=== PATIENT | male | born 1945 | race Caucasian/White ===

== ENCOUNTER 2017-10-28 11:35 | Inpatient (IN) | payer OTHER, BC ==
[~2017-10-28] VITALS: Ht 175.3 cm; Wt 68.0 kg
[~2017-10-28 11:35] MED LIST: ACETAMINOPHEN-1 EAC1 PO; ANASPAZ0.125 MG SL; ASPIR 8181 M1 PO; ASPIRIN325 PO; BACTRIM DS TAB1 EACH PO; BENAZEPRIL HCL40 MG PO; CASODEX 50 MG T50 MG PO; CIPRO500 MG PO; CIPROFLOXACIN500 M1 PO; CLOPIDOGREL75 MG PO; DILAUDID 2 MG TA2 MG PO; DOXYCYCLINE 10100 M1 PO; FERREX 150 PLU1 EAC1 PO; GLUCOTROL5 MG PO; HYDROCODONE-AP1 EAC6 PO; IBUPROFEN 200200 M1 PO; JANUMET 50-5001 EACH PO; LASIX 20 MG TAB20 MG PO; LOPRESSOR50 PO; LORTAB 5 MG/5001 TA1 PO; LOTREL 10-40 M1 EACH PO; METFORMIN HCL500 MG PO; NITROGLYCERIN0.4 MG SUBLING; NORVASC10 MG PO; PERIDEX15 ML; PHENAZOPYRIDIN200 M2 PO; PHENERGAN 25 MG25 M1 PO; PLAVIX 75 MG TA75 M1 PO; SIMVASTATIN20 MG PO; TOPROL XL50 MG PO; TYLENOL EXTRA500 MG PO; ZANTAC 150MG T150 M1 PO
[2017-10-28 11:36] VITALS: BP 189/101
[2017-10-28 12:00] LABS: HEMATOCRIT 27.9 % (42.0-52.0); HEMOGLOBIN 9.3 gm/dL (14.0-18.0); MCHC 33.4 g/dL (28.0-37.0); MCV 86.7 fL (80.0-100.0); MPV 7.5 fl. (7.2-11.1); NUCLEATED RBCS 0 /100WBC; PLATELET COUNT* 401 thou/uL (150-400); RBC 3.22 mil/uL (4.50-6.00); RDW-CV 18.2 % (10.5-14.5)
[2017-10-28 12:17] LABS: ANION GAP 7 mmol/L (7-16); BUN 14 mg/dL (7-18); CALCIUM 8.6 mg/dL (8.5-10.1); CHLORIDE 101 mmol/L (98-107); CO2 27 mmol/L (21-32); CREATININE 1.2 mg/dL (0.6-1.3); GLUCOSE 132 mg/dL (70-99); POTASSIUM 3.6 mmol/L (3.5-5.1); SODIUM 135 mmol/L (136-145)
[2017-10-28 12:23] LABS: ALBUMIN 2.4 g/dL (3.4-5.0); ALKALINE PHOSPHATASE 91 U/L (46-116); SGOT 20 U/L (15-37); SGPT 20 U/L (30-65); TOTAL BILIRUBIN 0.2 mg/dL (<0.1-1.0); TOTAL PROTEIN 7.1 g/dL (6.4-8.2); TROPONIN-I LEVEL <0.06 ng/mL (<0.06)
[2017-10-28 12:55] LABS: ABSOLUTE EOSINOPHILS 0.2 thou/uL (0.0-0.7); ABSOLUTE MONOCYTES 0.5 thou/uL (0.0-1.2); ABSOLUTE NEUTROPHILS 4.4 thou/uL (1.6-8.1); ANISOCYTOSIS 1+; PLATELET ESTIMATE INCREASED; POIKILOCYTOSIS 1+
[2017-10-28] MEDS ORDERED: HYOSCYAMINE0.375 M1 PO (15:00)
[2017-10-28] MEDS ORDERED: GLUCOPHAGE XR750 MG PO (15:02)
[2017-10-28] MEDS ORDERED: LASIX 20 MG TAB20 MG PO (15:03)
[2017-10-28] MEDS ORDERED: PROLOPRIM100 MG PO (15:03)
[2017-10-28] MEDS ORDERED: DILAUDID 2 MG TA2 MG PO (15:04)
[2017-10-28] MEDS ORDERED: VITAMINC500 PO (15:04)
[2017-10-28] MEDS ORDERED: IRON PO (15:05)
[2017-10-28] MEDS ORDERED: VITAMIN B-12500 MCG PO (15:13)
[2017-10-28] MEDS ORDERED: CLONIDINE0.1 PO (15:15)
--- NOTE | 2017-10-28 15:15 | EKG ---
[place] [address] ELECTROCARDIOGRAM REPORT Name: PADMINI WALKER Room: [place] [address] ADM IN [facility].#: [id number] Admission: 10/28/17 Attend Phys: Pablito Ferreira MD Discharge: Date of : 47 Report #: [id number] THIS REPORT FOR: //name// [facility] ED Test Date: 2017-10-28 Test Time: 12:02:40 Pat Name: PADMINI WALKER Department: Room: Gender: M [employer]: LISA : 1945 Requested By: Pavan Puga Order Number: [id number] MD: Joselito Griggs Measurements Intervals [place] Rate: 72 P: 37 LA: 159 QRS: 20 QRSD: 104 T: 60 QT: 483 QTc: 529 Interpretive Statements Sinus rhythm Minimal ST depression, diffuse leads Prolonged QT interval Compared to ECG 02/27/2017 08:00:07 ST (T wave) deviation now present Prolonged QT interval now present Myocardial infarct finding no longer present Possible ischemia no longer present Electronically Signed On 10-28-2017 15:15:00 CDT by Joselito Griggs [email or web address] <ELECTRONICALLY SIGNED> By: Joselito Griggs MD, [facility] 10/28/17 1515 1202 1202 Joselito Griggs MD, [facility] /EPI
[2017-10-28] MEDS ORDERED: ONDANSETRON HCL4 M2 PO (15:19)
[2017-10-28] MEDS ORDERED: VISTARIL 25 MG25 M1 PO (15:20)
[2017-10-28 17:22] VITALS: BP 186/90
[2017-10-28 17:24] VITALS: BP 179/95
[2017-10-28 20:30] VITALS: BP 167/74
[2017-10-29 00:02] VITALS: BP 169/76
[2017-10-29 03:57] VITALS: BP 172/70
[2017-10-29 03:58] LABS: ABSOLUTE EOSINOPHILS 0.1 thou/uL (0.0-0.7); ABSOLUTE LYMPHOCYTES 1.1 thou/uL (0.8-5.3); ABSOLUTE MONOCYTES 0.8 thou/uL (0.0-1.2); ABSOLUTE NEUTROPHILS 3.3 thou/uL (1.6-8.1); BASOPHILS 0.9 %; HEMATOCRIT 25.4 % (42.0-52.0); HEMOGLOBIN 8.5 gm/dL (14.0-18.0); MCH 28.6 pg (26.0-34.0); MCHC 33.3 g/dL (28.0-37.0); MCV 85.9 fL (80.0-100.0); MPV 7.7 fl. (7.2-11.1); NUCLEATED RBCS 0 /100WBC; PLATELET COUNT* 373 thou/uL (150-400); POLYS 61.1 %; RBC 2.96 mil/uL (4.50-6.00); WBC 5.3 thou/uL (4.0-11.0)
[2017-10-29 04:12] LABS: CALCIUM 8.1 mg/dL (8.5-10.1); CREATININE 1.1 mg/dL (0.6-1.3); POTASSIUM 3.9 mmol/L (3.5-5.1)
[2017-10-29 08:05] VITALS: BP 167/83
[2017-10-29 14:58] VITALS: BP 167/83
[2017-10-30 00:37] VITALS: BP 184/83
[2017-10-30 06:00] VITALS: BP 175/70
[2017-10-30 08:00] VITALS: BP 162/68
[2017-10-30 11:10] LABS: ABSOLUTE EOSINOPHILS 0.1 thou/uL (0.0-0.7); ABSOLUTE LYMPHOCYTES 0.6 thou/uL (0.8-5.3); ABSOLUTE MONOCYTES 0.6 thou/uL (0.0-1.2); ABSOLUTE NEUTROPHILS 3.3 thou/uL (1.6-8.1); BASOPHILS 0.6 %; EOSINOPHILS 2.2 %; HEMATOCRIT 26.7 % (42.0-52.0); HEMOGLOBIN 8.8 gm/dL (14.0-18.0); LYMPHOCYTES 13.6 %; MCH 28.6 pg (26.0-34.0); MCV 86.9 fL (80.0-100.0); MONOCYTES 13.6 %; MPV 7.5 fl. (7.2-11.1); NUCLEATED RBCS 0 /100WBC; PLATELET COUNT* 354 thou/uL (150-400); RBC 3.08 mil/uL (4.50-6.00); RDW-CV 18.6 % (10.5-14.5); WBC 4.7 thou/uL (4.0-11.0)
[2017-10-30 11:28] LABS: ALBUMIN 2.2 g/dL (3.4-5.0); CALCIUM 8.7 mg/dL (8.5-10.1); CREATININE 1.3 mg/dL (0.6-1.3); TOTAL BILIRUBIN 0.1 mg/dL (<0.1-1.0); TOTAL PROTEIN 6.1 g/dL (6.4-8.2)
[2017-10-30 12:12] LABS: % SATURATION 8 % (20-39); IRON 15 ug/dL (50-175)
[2017-10-30 15:44] VITALS: BP 111/75
[2017-10-31] VITALS: BP 179/80
[2017-10-31 01:10] VITALS: BP 123/68
[2017-10-31 08:00] VITALS: BP 142/68
[2017-10-31 13:53] LABS: HEMATOCRIT 28.6 % (42.0-52.0); HEMOGLOBIN 9.5 gm/dL (14.0-18.0); MCH 28.6 pg (26.0-34.0); MCHC 33.1 g/dL (28.0-37.0); MCV 86.5 fL (80.0-100.0); MPV 7.8 fl. (7.2-11.1); RBC 3.31 mil/uL (4.50-6.00); RDW-CV 18.7 % (10.5-14.5); WBC 4.8 thou/uL (4.0-11.0)
[2017-10-31 14:00] LABS: ALBUMIN 2.2 g/dL (3.4-5.0); CALCIUM 8.5 mg/dL (8.5-10.1); CREATININE 1.4 mg/dL (0.6-1.3); MAGNESIUM 2.2 mg/dL (1.8-2.4); POTASSIUM 4.2 mmol/L (3.5-5.1); TOTAL BILIRUBIN 0.2 mg/dL (<0.1-1.0); TOTAL PROTEIN 7.1 g/dL (6.4-8.2)
[2017-10-31 16:00] VITALS: BP 189/81
[2017-11-01 00:05] VITALS: BP 167/67
[2017-11-01 04:24] LABS: HEMATOCRIT 26.2 % (42.0-52.0); HEMOGLOBIN 8.6 gm/dL (14.0-18.0); MCH 28.6 pg (26.0-34.0); MCHC 33.1 g/dL (28.0-37.0); MCV 86.4 fL (80.0-100.0); MPV 7.6 fl. (7.2-11.1); RBC 3.03 mil/uL (4.50-6.00); RDW-CV 18.1 % (10.5-14.5); WBC 4.5 thou/uL (4.0-11.0)
[2017-11-01 04:39] LABS: CALCIUM 8.5 mg/dL (8.5-10.1); CREATININE 1.4 mg/dL (0.6-1.3); MAGNESIUM 1.9 mg/dL (1.8-2.4); POTASSIUM 4.5 mmol/L (3.5-5.1); TOTAL BILIRUBIN 0.2 mg/dL (<0.1-1.0); TOTAL PROTEIN 6.2 g/dL (6.4-8.2)
[2017-11-01 08:30] VITALS: BP 174/74
--- NOTE | 2017-11-01 15:00 | CON ---
[address] [address] CONSULTATION Name: PADMINI WALKER Room: [address] IN M.R.#: [id number] Admission: 10/28/17 Attend Phys: Pablito Ferreira MD Discharge: Date of : 47 Report #: [id number] THIS REPORT FOR: //name// CC: Pablito Morel PRIMARY ONCOLOGIST: Dr. Potts, [facility]. DIAGNOSES: Bladder cancer and prostate cancer. SUBJECT: The patient is known for Dr. Potts. He has been treated for metastatic bladder cancer with atezolizumab. The patient was last seen in the clinic on 10/20/2017. At that time, he was recently discharged from the hospital, had finished IV antibiotics due to UTI. He received his dose on 10/20/2017. He has recent scans reviewed by Dr. Davis in 09/2017 where there were hepatic metastases with bone mets, there was a small pleural effusion. Per the records, the plan is to proceed. It was too early to decide whether the patient had significant progression of disease. The patient was found to have anemia, hemoglobin 6.5. Around a week ago, [facility] into [facility], received 1 unit of PRBCs. Upon evaluation in the Emergency Room, his hemoglobin was above 9. The patient was admitted because of transient shortness of breath, which was felt due to volume overload. REVIEW OF SYSTEMS: All systems reviewed, was negative except the above. PAST MEDICAL HISTORY: Bladder cancer, currently on immune therapy; prostate cancer, his most recent PSA on 10/17/2017 was 14.5, he is currently on Casodex; coronary artery disease; diabetes mellitus; hypertension and dyslipidemia. PAST SURGICAL HISTORY: Prostate surgery and hernia repair, cardiac stenting, CABG. SOCIAL HISTORY: No alcohol abuse or drug abuse. ALLERGIES: HYDROCODONE, OXYCODONE, TRAMADOL. MEDICATIONS: Per admission list. PHYSICAL EXAMINATION: GENERAL: The patient was lying in bed. He was not in acute distress. LUNGS: Mild fine crackles. No wheezing. ABDOMEN: Soft, nontender, nondistended. Bowel sounds positive. EXTREMITIES: No edema, no cyanosis, no clubbing. LABORATORY DATA: His labs during hospitalization have been reviewed and most recently at [facility] on 10/26/2017, his WBC was 5.0, hemoglobin 7.1, [place] [address] CONSULTATION Name: PADMINI WALKER Room: [address] IN [facility]#: [id number] Admission: 10/28/17 Attend Phys: Pablito Ferreira MD Discharge: Date of : 47 Report #: [id number] platelets 377. Sodium is 135, creatinine 1.2, calcium is 8.4. PSA 14.5. ASSESSMENT AND PLAN: A 72-year-old male who was diagnosed with a metastatic bladder cancer. He has been receiving immunotherapy with atezolizumab. The patient's most recent note from Dr. Potts, he recommended to continue current treatment at this point because the changes did not meet the criteria for progression. I believe his shortness of breath is most likely due to volume overload, could be attributed to blood transfusion. At this point, recommend current supportive care. No need for any further transfusion at this point. We will follow the patient during hospitalization. <ELECTRONICALLY SIGNED> By: Merlin Smith MD 11/01/17 1500 [id number] Smith MD /nt
[2017-11-01] MEDS ORDERED: PROBIOTIC1 EAC2 PO (16:30)
[2017-11-01 16:31] VITALS: BP 167/83
[2017-11-01] MEDS ORDERED: AUGMENTIN 875-1 EACH PO (17:15)
[2017-11-01 20:08] VITALS: BP 167/83
== END 2017-11-01 18:00 | disposition home health service (06) | DRG 177 ==
LOC: M.ERS 11:35 → M.ORTHSURG 15:01 → M.3W 15:01 → M.TBA-ER 15:01 → M.3W 17:28 → M.ORTHSURG 10-29 16:40
PROVIDERS: Emergency Medicine Emergency Medical Services; Family Medicine; Internal Medicine; ADMIT Internal Medicine
DX: J15.6 Pneumonia due to other Gram-negative bacteria (principal); J81.0 Acute pulmonary edema; N39.0 Urinary tract infection, site not specified; C79.11 Secondary malignant neoplasm of bladder; E44.0 Moderate protein-calorie malnutrition; D64.9 Anemia, unspecified; C80.1 Malignant (primary) neoplasm, unspecified; I50.9 Heart failure, unspecified; I25.10 Atherosclerotic heart disease of native coronary artery without angina pectoris; C61 Malignant neoplasm of prostate; I11.0 Hypertensive heart disease with heart failure; E78.5 Hyperlipidemia, unspecified; R31.9 Hematuria, unspecified; E87.70 Fluid overload, unspecified; E11.9 Type 2 diabetes mellitus without complications; I25.2 Old myocardial infarction; Z85.51 Personal history of malignant neoplasm of bladder; Z86.73 Personal history of transient ischemic attack (TIA), and cerebral infarction without residual deficits; Z88.6 Allergy status to analgesic agent; Z88.8 Allergy status to other drugs, medicaments and biological substances